=== PATIENT | female | born 1950 | race Caucasian/White ===

== ENCOUNTER 2021-04-26 08:28 | Observation (INO) ==
[~2021-04-26 08:28] MED LIST: Buffered Lidocaine 1% SYRIN 1 ml INTRADERM ONE; DiMENhydriNATE IV 50 mg/ml 1 ml VIAL IV PUSH ONE; Lactated Ringers 1000 ml BAG 1,000 ML IV SCH; Metoclopramide 5 MG/ML VIAL (10 mg) IV PRN; Naloxone 0.4 mg VIAL 0.4 mg/ml 1 ml VIAL IV PRN; Ondansetron 4 mg VIAL 2 MG/ML 2 ml VIAL IV PRN
[2021-04-26] MEDS ORDERED: ceFAZolin 2 GM in NS PREMIX 2 GM/100 ML BAG IVPB ONE (08:53)
[2021-04-26] MEDS ORDERED: DiMENhydriNATE IV 50 mg/ml 1 ml VIAL ONE (08:53)
[2021-04-26] MEDS ORDERED: Midazolam 2 mg/2 ml VIAL 1 mg/ml 2 ml VIAL (2 mg) ONE ×2 (09:12→09:42)
[2021-04-26] MEDS ORDERED: fentaNYL 100 mcg/2 ml 50 MCG/ML VIAL ONE ×4 (09:42→13:34)
[2021-04-26] MEDS ORDERED: Dexamethasone IV 4 MG/ML VIAL 1 ml VIAL ONE ×2 (09:42→11:35)
[2021-04-26] MEDS ORDERED: Bupivacaine 0.5% SDV PF 30ML VIAL ONE (09:42)
[2021-04-26] MEDS ORDERED: Ropivacaine 5 MG/ML 20 ML VIAL 0.5% (100 MG) ONE (10:11)
[2021-04-26] MEDS ORDERED: Ketamine HCL 50 mg/ml 10 ml VIAL (500 MG) ONE (11:28)
[2021-04-26] MEDS ORDERED: Morphine 2 MG/ML SYRINGE IV PRN (11:29)
[2021-04-26] MEDS ORDERED: Ondansetron ODT 4 mg TAB 4 MG TAB PO PRN (11:29)
[2021-04-26] MEDS ORDERED: Ondansetron 4 mg VIAL 2 MG/ML 2 ml VIAL IV PRN (11:29)
[2021-04-26] MEDS ORDERED: diPHENhydraMINE IV 50 MG/ML 1 ml VIAL (BENADRYL) IV PRN (11:29)
[2021-04-26] MEDS ORDERED: Lactulose 30 ml UDC PO PRN (11:29)
[2021-04-26] MEDS ORDERED: Magnesium Hydroxide LIQ 30 ML UDC PO PRN (11:29)
[2021-04-26] MEDS ORDERED: diPHENhydraMINE 25 mg TAB PO PRN (11:29)
[2021-04-26] MEDS ORDERED: Ondansetron 4 mg VIAL 2 MG/ML 2 ml VIAL ONE (11:35)
[2021-04-26] MEDS ORDERED: EPHEDrine (Pressors) 50 MG/ML VIAL ONE (11:50)
[2021-04-26] MEDS: fentaNYL 100 mcg/2 ml 50 MCG/ML VIAL IV PRN ×8 (13:18→14:07)
[2021-04-26] MEDS ORDERED: HYDROcodone/ACETAMIN 5/325 mg TAB ONE ×2 (13:49→14:06)
[2021-04-26] MEDS: HYDROcodone/ACETAMIN 5/325 mg TAB PO PRN ×2 (13:49→14:10)
[2021-04-26] MEDS: Lactated Ringers 1000 ml BAG 1,000 ML IV SCH (15:27)
[2021-04-26] MEDS: ceFAZolin 1 GM ADVAN 1 GM in NS 0.9% 50 ML 50 ML IVPB SCH (19:26)
[2021-04-26] MEDS: Magnesium Hydroxide LIQ 30 ML UDC PO SCH (22:07)
[2021-04-27] MEDS: Lactated Ringers 1000 ml BAG 1,000 ML IV SCH (01:44)
[2021-04-27] MEDS: ceFAZolin 1 GM ADVAN 1 GM in NS 0.9% 50 ML 50 ML IVPB SCH ×2 (03:19→11:08)
[2021-04-27 06:21] LABS: Hematocrit 33 % (35-47); Hemoglobin 11.3 g/dL (12.0-16.0); Mean Platelet Volume 8.6 fL (7.4-10.4); Platelet Count 201 10^3/uL (150-450)
[2021-04-27 06:44] LABS: Calcium 8.9 mg/dL (8.6-10.3); Potassium 4.1 mmol/L (3.5-5.0)
[2021-04-27] MEDS: Magnesium Hydroxide LIQ 30 ML UDC PO SCH (08:47)
[2021-04-27] MEDS ORDERED: Vitamin THERAPEUTIC TAB PO SCH (09:00)
[2021-04-27 12:00] VITALS: BP 95/57
== END 2021-04-27 14:30 | disposition home or self-care (01) ==
LOC: SSU 08:28 → OR 08:28
PROVIDERS: ADMIT Orthopaedic Surgery Adult Reconstructive Orthopaedic Surgery; ATTEND Orthopaedic Surgery Adult Reconstructive Orthopaedic Surgery